=== PATIENT | female | born 1960 | race Caucasian/White ===

== ENCOUNTER 2017-11-27 12:50 | Emergency (ER) | payer OTHER, BC, SELFPAY ==
[2017-11-27 12:52] VITALS: BP 127/79; PULSE 70; RESP 18; TEMP 36.9; O2SAT 98
--- NOTE | 2017-11-27 12:56 | DI.RAD.S_ITS ---
PROCEDURE: XR ANKLE RT MIN 3V INDICATIONS: swelling TECHNIQUE: 3 views of the ankle were acquired. COMPARISON: None. FINDINGS: Bones: No fractures or dislocations. Ankle mortise is normally aligned. No suspicious bony lesions. Soft tissues: No tibiotalar joint effusion. Achilles tendon appears normal. IMPRESSION: No acute fracture. No osseous lesion. If clinical suspicion and/or symptoms persist, further assessment with repeat plainfilms, or advanced imaging (e.g., CT, MRI, or bone scan) may be helpful for further assessment. Dictated by: Fabiana Walls M.D. on 11/27/2017 at 13:18 Approved by: Fabiana Walls M.D. on 11/27/2017 at 13:18
--- NOTE | 2017-11-27 14:03 | ED.LOWEXIN ---
HPI - Extremity Injury (Lower) <MIRACLE De Los Santos - Last Filed: 11/27/17 22:03> General Chief Complaint: Extremity Injury, Lower Stated Complaint: 'BROKE MY ANKLE' Time Seen by Provider: 11/27/17 14:01 History of Present Illness HPI Narrative: 57-year-old female here for complaint of pain into her right ankle and right lower extremity. She states that she got up last night to go to the restroom and twisted her ankle while she was walking to the restroom. She denies any direct trauma to the ankle or lower extremity. She reported increased pain this morning. With some slight swelling. She denies any other injuries or complaints at this time. She reports increased pain with ambulation and weight-bearing. No other concerns or complaints. Related Data Home Medications Medication Instructions Recorded Confirmed aspirin 325 mg PO QDAY #0 08/04/12 10/18/17 Previous Rx's Medication Instructions Recorded atorvastatin 40 mg PO HS #90 tab 11/23/16 gabapentin 800 mg PO TID #270 tab 08/26/17 omeprazole 20 mg PO QDAY #90 cap 08/26/17 lisinopril 10 mg PO Q DAY #90 tab 09/26/17 hydrocodone 5 mg-acetaminophen 325 1 tab PO BID PRN #60 tab 10/18/17 mg tablet duloxetine 30 mg capsule,delayed 60 mg PO QDAY #60 cap 11/28/17 release Allergies Allergy/AdvReac Type Severity Reaction Status Date / Time simvastatin Allergy Severe Anaphylaxis, Verified 10/18/17 15:30 upper back pain prednisone [PREDNISONE] AdvReac Unknown NAUSEA AND Verified 10/18/17 15:30 VOMITING Review of Systems <MIRACLE De Los Santos - Last Filed: 11/27/17 22:03> Constitutional Denies chills, Denies fever(s), Denies lethargy and Denies weakness Eyes Denies change in vision, Denies eye discharge, Denies irritation and Denies loss of vision ENT Ears, Nose, Mouth, and Throat: Denies change in voice, Denies neck pain and Denies sore throat Cardiovascular Denies chest pain, Denies irregular heart rhythm, Denies lightheadedness, Denies palpitations, Denies dyspnea, Denies dyspnea on exertion and Denies orthopnea Respiratory Denies cough, Denies dyspnea, Denies dyspnea on exertion and Denies wheezing Gastrointestinal Gastrointestinal: Denies abdominal pain, Denies change in bowel habits, Denies diarrhea, Denies nausea and Denies vomiting Genitourinary Denies hematuria, Denies flank pain, Denies urinary incontinence and Denies urinary urgency Musculoskeletal Denies neck pain Comments: Left ankle and lower extremity pain Integumentary/Breasts Denies pruritus, Denies erythema, Denies rash and Denies wounds Neurologic Denies confusion, Denies loss of vision and Denies weakness Psychiatric Denies anxiety, Denies confusion, Denies depression, Denies homicidal ideation and Denies suicidal ideation Endocrine Denies palpitations Allergic/Immunologic Denies wheezing Exam <TALON De Los SantosP - Last Filed: 11/27/17 22:03> Initial Vital Signs Initial Vital Signs: Vital Signs Temperature 98.4 F 11/27/17 12:52 Pulse Rate 70 11/27/17 12:52 Respiratory Rate 18 11/27/17 12:52 Blood Pressure 127/79 H 11/27/17 12:52 Pulse Oximetry 98 11/27/17 12:52 Const General: cooperative and well developed Nutritional Appearance: well nourished Orientation: alert, awake, oriented x3 and not confused HENOR Mouth: oral mucosae normal and moist mucous membranes Eyes Conjunctivae: conjunctivae normal Sclera: sclerae normal Pupils: PERRL EOM: EOM intact bilaterally Resp Effort & Inspection: normal respiratory effort, able to speak in complete sentences, no respiratory distress and no use of accessory muscles Auscultation: clear to auscultation bilaterally, no rales, no rhonchi and no wheezes Cardio Rate: regular rate Rhythm: regular rhythm Heart Sounds: no click, no gallops, no murmurs and no rubs Pulses: normal peripheral pulses Skin General: no rashes or lesions noted, No jaundice and No petechiae Extrem Other: Right ankle with slight swelling. No ecchymosis. No deformities. Distal sensation is intact. Distal range of motion is intact. Distal pulses are intact. <Pamela Mayer DO - Last Filed: 11/30/17 19:56> Initial Vital Signs Initial Vital Signs: Vital Signs Temperature 98.4 F 11/27/17 12:52 Pulse Rate 70 11/27/17 12:52 Respiratory Rate 18 11/27/17 12:52 Blood Pressure 127/79 H 11/27/17 12:52 Pulse Oximetry 98 11/27/17 12:52 Course <MIRACLE De Los Santos - Last Filed: 11/27/17 22:03> Orders Ordered: Discontinued Medications Ibuprofen (Advil) 400 mg PO NOW ONE Stop: 11/27/17 14:29 Last Admin: 11/27/17 14:34 Dose: 400 mg Vital Signs - 8 hr 11/27/17 14:08 Pulse Rate [Bilateral Dorsalis Pedis] 86 <Pamela Mayer DO - Last Filed: 11/30/17 19:56> Orders Ordered: Discontinued Medications Ibuprofen (Advil) 400 mg PO NOW ONE Stop: 11/27/17 14:29 Last Admin: 11/27/17 14:34 Dose: 400 mg Vital Signs - 8 hr 11/27/17 14:08 Pulse Rate [Bilateral Dorsalis Pedis] 86 MDM - Extremity Injury (Lower) <MIRACLE De Los Santos - Last Filed: 11/27/17 22:03> Imaging Data Ankle : Radiologist's impression: PROCEDURE: XR ANKLE RT MIN 3V INDICATIONS: swelling TECHNIQUE: 3 views of the ankle were acquired. COMPARISON: None. FINDINGS: Bones: No fractures or dislocations. Ankle mortise is normally aligned. No suspicious bony lesions. Soft tissues: No tibiotalar joint effusion. Achilles tendon appears normal. IMPRESSION: No acute fracture. No osseous lesion. If clinical suspicion and/or symptoms persist, further assessment with repeat plainfilms, or advanced imaging (e.g., CT, MRI, or bone scan) may be helpful for further assessment. Dictated by: Fabiana Walls M.D. on 11/27/2017 at 13:18 Approved by: Fabiana Walls M.D. on 11/27/2017 at 13:18 [facility] Narrative Medical decision making narrative: X-ray of the right ankle was obtained was negative for any acute findings. Due to pain radiating into the right lower extremity tib-fib area offered to get x-ray of that area patient refused. She is placed in a premade gel stirrup splint for comfort and support she has also provided crutches for nonweightbearing. [id number] Tylenol or Motrin as needed for any discomfort. Ice and elevation help with swelling. Follow up with primary care provider later this week for re-evaluation. For any worsening symptoms return to the emergency room. Discharge Plan Departure Patient Disposition: Home, Self-Care Clinical Impression: Right ankle sprain Discharge Date/Time: 11/27/17 14:55 Interventions: ED Discharge Assessment Last Done: 11/27/17 14:55 Instructions: DI for Ankle Sprain Activity Restrictions/Additional Instructions: X-ray the right ankle was obtained and was negative for any acute fractures. Signs and symptoms presents as a sprain into the right ankle. You have been placed in a splint for comfort and support use as directed. Use crutches for nonweightbearing as directed. Use [id number] Tylenol Motrin as needed for any discomfort. Ice and elevation to help with swelling. Follow up with her primary care provider later this week for re-evaluation. For any worsening symptoms return to the emergency room. Prescriptions: No Action aspirin 325 MG tablet 325 mg PO QDAY Qty: 0 RF: 0 atorvastatin 40 MG tablet 40 mg PO HS Qty: 90 RF: 0 gabapentin 800 MG tablet 800 mg PO TID Qty: 270 RF: 1 omeprazole 20 MG capsule,delayed release(DR/EC) 20 mg PO QDAY Qty: 90 RF: 2 lisinopril 10 MG tablet 10 mg PO Q DAY Qty: 90 RF: 3 duloxetine 30 mg capsule,delayed release(DR/EC) 60 mg PO QDAY Qty: 60 RF: 5 hydrocodone-acetaminophen [[place]] 5-325 mg tablet 1 tab PO BID PRN (Reason: pain) Qty: 60 RF: 0 Referrals: Elliot Brink MD [Primary Care Provider] - <Pamela Mayer DO - Last Filed: 11/30/17 19:56> Cosign ED Attending Michael Attestation: I was immediately available in the department for consultation. Documentation has been reviewed. I agree with assessment and plan.
[2017-11-27 14:08] VITALS: PULSE 86
[2017-11-27] MEDS: IBUPROFEN 400 MG TABLET PO (14:34)
--- NOTE | 2017-11-27 14:53 | PC.NURSE ---
pt refused splint/crutches a this time. Pt states she needs to go see her father on fathers day and can not wait here any longer. Provider aware at this time. Pt refused depart vitals as well.
== END 2017-11-27 14:55 | disposition home or self-care (01) ==
PROVIDERS: Emergency Provider Nurse Practitioner Family; PCP Internal Medicine
DX: S93.401A Sprain of unspecified ligament of right ankle, initial encounter (principal); W18.40XA Slipping, tripping and stumbling without falling, unspecified, initial encounter
CPT/HCPCS: 73610; 99282; 99283

== ENCOUNTER → 2017-12-06 13:13 | Outpatient (CLI) | payer OTHER, BC, SELFPAY ==
--- NOTE | 2017-12-06 13:15 | DI.RAD.S_ITS ---
PROCEDURE: XR ANKLE RT MIN 3V INDICATIONS: 57 year-old female with right ankle sprain worsening since 11/26/17. TECHNIQUE: 3 views of the ankle were acquired. COMPARISON: [facility], , XR ANKLE RT MIN 3V, 11/27/2017, 12:46. FINDINGS: Bones: No fractures or dislocations. Ankle mortise is normally aligned. No suspicious bony lesions. Soft tissues: There is persistent mild lateral malleolar soft tissue swelling. No tibiotalar joint effusion. Achilles tendon appears normal. IMPRESSION: No acute bony injuries of the right ankle. Dictated by: Keyur House M.D. on 12/06/2017 at 13:36 Approved by: Keyur House M.D. on 12/06/2017 at 13:37
--- NOTE | 2017-12-06 13:15 | DI.RAD.S_ITS ---
PROCEDURE: XR FOOT RT MIN 3V INDICATIONS: 57 year-old female with right ankle sprain worsening since 11/26/17. TECHNIQUE: 3 views of the foot were acquired. COMPARISON: None. FINDINGS: Bones: On the lateral projection only, a minimally displaced vertical posterior malleolar fracture is present. No suspicious bony lesions. Soft tissues: No tibiotalar joint effusion. Achilles tendon appears normal. IMPRESSION: Minimally displaced posterior malleolar fracture, not apparent on any of the comparison right ankle radiographs on retrospective review. Dictated by: Keyur House M.D. on 12/06/2017 at 13:38 Approved by: Keyur House M.D. on 12/06/2017 at 13:40
== END ==
PROVIDERS: PCP Internal Medicine; Visit Provider Internal Medicine
DX: S93.401A Sprain of unspecified ligament of right ankle, initial encounter (principal); S82.891A Other fracture of right lower leg, initial encounter for closed fracture
CPT/HCPCS: 73610; 73630

== ENCOUNTER → 2017-12-09 08:40 | Outpatient (CLI) | payer OTHER, BC, SELFPAY ==
--- NOTE | 2017-12-09 | DI.CT.S_ITS ---
PROCEDURE: CT LE RT WO CON INDICATIONS: ACUTE RIGHT ANKLE PAIN TECHNIQUE: Noncontrast 1-1.5 mm axial sections acquired from above the tibiotalar joint to the bottom of the calcaneus, with coronal and sagittal reformats. COMPARISON: [facility], CR, XR FOOT RT MIN 3V, 12/06/2017, 13:22. [facility], CR, XR ANKLE RT MIN 3V, 12/06/2017, 13:17. [facility], CR, XR ANKLE RT MIN 3V, 11/27/2017, 12:46. FINDINGS: Image quality: Excellent. Bones: A nondisplaced posterior malleolar fracture is seen, as visualized on the prior radiographs. There is extension to the distal articular surface of the tibia however minimal if any articular surface incongruity. There is a small nondisplaced fracture at the tip of the medial malleolus image 100 series 5. On image 112 series 5 there is a 3 mm linear density adjacent to the medial aspect of the talus however no definite donor site is seen and this could be chronic calcification. There is spurring at the lateral malleolus. There also linear densities in the region of the Lisfranc ligament raising possibility of chronic Lisfranc ligament injury and associated dystrophic calcifications. Recommend clinical correlation. No definite donor site is identified. A presume subcentimeter bone island seen in the calcaneus on image 99 series 5. Soft tissues: Small tibiotalar joint effusion. Circumferential hindfoot subcutaneous swelling and edema. IMPRESSION: Nondisplaced posterior and medial malleolar fractures as above. Small linear densities seen in the region of the Lisfranc ligament raising the possibility of chronic ligamentous injury. Recommend clinical correlation to exclude cortical avulsion fracture fragments (no definitive donor sites identified) Small tibiotalar joint effusion. Dictated by: Toño Mccoy M.D. on 12/09/2017 at 9:17 Approved by: Toño Mccoy M.D. on 12/09/2017 at 9:36
== END ==
PROVIDERS: PCP Internal Medicine; Visit Provider Physician Assistant
DX: S82.54XA Nondisplaced fracture of medial malleolus of right tibia, initial encounter for closed fracture (principal)
CPT/HCPCS: 73700

== ENCOUNTER → 2018-10-04 14:00 | Outpatient (CLI) | payer OTHER, BC, SELFPAY ==
[2018-10-04 14:41] LABS: Erythrocyte Sedimentation Rate 45 MM/HR (0-20)
[2018-10-06 13:33] LABS: ANA Pattern Speckled; ANA Screen, IFA Positive (Negative); ANA Titer 1:40 titer (<1:40)
== END ==
PROVIDERS: PCP Student in an Organized Health Care Education/Training Program; Visit Provider Hospitalist
DX: R51 Headache (principal)
CPT/HCPCS: 36415; 85651; 86038

== ENCOUNTER → 2018-11-09 10:25 | Outpatient (CLI) | payer OTHER, BC, SELFPAY ==
[2018-11-09 11:25] LABS: Alanine Aminotransferase 20 IU/L (9-52); Albumin 4.6 g/dL (3.5-5.0); Albumin Globulin Ratio 1.4 (1.0-2.8); Alkaline Phosphatase 101 U/L (38-126); Bilirubin Total 1.1 mg/dL (0.2-1.3); Blood Urea Nitrogen 14 mg/dL (7-17); Calcium 9.4 mg/dL (8.4-10.2); Carbon Dioxide 26 mmol/L (22-32); Chloride 103 mmol/L (98-107); Cholesterol 242 mg/dL (140-199); Estimated Glomerular Filt Rate > 60.0 mL/min (>60); Globulin 3.3 g/dL (1.7-4.1); Glucose 108 mg/dL (70-100); HDL Cholesterol 102 mg/dL (40-60); LDL Cholesterol Calculated 114 mg/dL (<100); Sodium 138 mmol/L (137-145); Total Protein 7.9 g/dL (6.3-8.2); Triglycerides 132 mg/dL (35-150)
[2018-11-09 11:28] LABS: HEMOLYSIS 122 (0-50); Potassium 4.9 mmol/L (3.4-5.1)
[2018-11-09 11:29] LABS: Aspartate Aminotransferase 43 IU/L (14-36)
== END ==
PROVIDERS: PCP Student in an Organized Health Care Education/Training Program; Visit Provider Student in an Organized Health Care Education/Training Program
DX: E78.2 Mixed hyperlipidemia (principal); Z79.899 Other long term (current) drug therapy; E04.1 Nontoxic single thyroid nodule; G45.9 Transient cerebral ischemic attack, unspecified; I10 Essential (primary) hypertension
CPT/HCPCS: 36415; 80053; 80061

== ENCOUNTER 2019-06-07 18:26 | Emergency (ER) | payer OTHER, BC, SELFPAY ==
[2019-06-07 18:48] VITALS: BP 144/93; PULSE 65; RESP 16; TEMP 36.4; O2SAT 100; BMI 30.2
[2019-06-07 19:14] LABS: Bacteria Urine None Seen; RBC Urine None Seen (0-5/HPF)
[2019-06-07 19:16] LABS: Appearance Urine UA CLEAR; Bilirubin Urine UA NEGATIVE (NEGATIVE); Color Urine UA YELLOW; Glucose Urine UA NEGATIVE (Negative); Ketones Urine UA NEGATIVE (NEGATIVE); Leukocyte Esterase Urine UA NEGATIVE (NEGATIVE); Nitrite Urine UA NEGATIVE (Negative); Occult Blood Urine UA NEGATIVE (Negative); Protein Urine UA NEGATIVE (Negative); Specific Gravity Urine UA <=1.005 (1.000-1.035); Urobilinogen Urine UA 0.2 E.U./dL (0.2)
--- NOTE | 2019-06-07 19:18 | ED.BACK ---
HPI - Back Pain/Injury General Chief Complaint: Back Pain/Injury Stated Complaint: lower back pain with lwr abdominal pain x7 days Time Seen by Provider: 06/07/19 19:16 Source: patient and family Mode of arrival: Ambulatory Limitations: no limitations History of Present Illness HPI Narrative: Former smoker presents with her in the chief complaint of gradually worsening generalized GI symptoms over the past month. She states that she has had alterations in her bowel habit ranging from constipation to diarrhea as well as a fullness and pressure like pain in her lower abdomen that seems to radiate to her back. She denies any numbness, tingling or weakness. She denies dysuria, frequency or urgency. She denies any vaginal bleeding or discharge. She denies the sensation of a foreign body or tissue which is bulging in her vaginal vault such as prolapse. She denies any history of the same outside of this prolonged episode. She denies any family history of colon or rectal cancer. She denies bad food, recent antibiotics MD Complaint: back pain Onset (ago): month(s) Duration: intermittent and progressively worsening Similar Symptoms Previously: No Location: lumbar spine Severity: mild Radiation: none Related Data Home Medications Medication Instructions Recorded Confirmed aspirin 325 mg PO QDAY #0 08/04/12 11/09/18 cholecalciferol (vitamin D3) 50 2,000 unit PO DAILY 08/18/18 11/09/18 mcg (2,000 unit) capsule Previous Rx's Medication Instructions Recorded omeprazole 20 mg capsule,delayed 20 mg PO BID #180 cap 11/09/18 release verapamil 120 mg 24 hr 120 mg PO DAILY #30 cap 12/11/18 capsule,extended release gabapentin 800 mg tablet 800 mg PO TID #270 tab 01/22/19 atorvastatin 40 mg tablet 40 mg PO HS #90 tab 03/26/19 duloxetine 30 mg capsule,delayed 60 mg PO QDAY #180 cap 03/26/19 release losartan 50 mg tablet 50 mg PO DAILY #90 tab 05/22/19 Allergies Allergy/AdvReac Type Severity Reaction Status Date / Time lisinopril Allergy Severe SWOLLEN Verified 12/12/18 10:05 TOUNGUE simvastatin Allergy Severe Anaphylaxis, Verified 12/12/18 10:05 upper back pain prednisone [PREDNISONE] AdvReac Unknown NAUSEA AND Verified 12/12/18 10:05 VOMITING Review of Systems Constitutional Constitutional: Denies chills, Denies fatigue, Denies fever(s), Denies frequent falls, Denies lethargy and Denies weakness Eyes Eyes: Denies change in vision, Denies eye discharge, Denies irritation and Denies loss of vision ENT Ears, Nose, Mouth, and Throat: Denies change in voice, Denies dizziness, Denies neck pain, Denies sore throat and Denies throat swelling Cardiovascular Cardiovascular: Denies chest pain, Denies irregular heart rhythm, Denies lightheadedness, Denies palpitations, Denies dyspnea, Denies dyspnea on exertion and Denies orthopnea Respiratory Respiratory: Denies cough, Denies dyspnea, Denies dyspnea on exertion and Denies wheezing Gastrointestinal Gastrointestinal: Reports abdominal pain, Reports change in bowel habits, Reports constipation, Reports diarrhea, Denies nausea and Denies vomiting Genitourinary Genitourinary: Denies hematuria, Denies flank pain, Denies urinary incontinence and Denies urinary urgency Musculoskeletal Musculoskeletal: Denies back pain, Denies muscle weakness, Denies neck pain, Denies numbness and Denies tingling Integumentary/Breasts Skin/Breast: Denies pruritus, Denies erythema, Denies rash and Denies wounds Neurologic Neurologic: Denies behavioral changes, Denies confusion, Denies dizziness, Denies frequent falls, Denies loss of vision, Denies numbness, Denies tingling and Denies weakness Psychiatric Psychiatric: Denies anxiety, Denies behavioral changes, Denies confusion, Denies depression, Denies homicidal ideation and Denies suicidal ideation Endocrine Endocrine: Denies fatigue, Denies flushing and Denies palpitations Hematologic/Lymphatic Hematologic/Lymphatic: Denies easy bruising Allergic/Immunologic Allergic/Immunologic: Denies urticaria, Denies throat swelling and Denies wheezing Patient History Medical History Cervical spine disease (Chronic) Hypertension (Chronic ~2013) TIA (transient ischemic attack) (Resolved ~09/2011) Surgical History History of cervical spinal surgery (Resolved ~06/2014) History of esophagogastroduodenoscopy (EGD) (06/04/14) Family History Father Hyperlipidemia Hypertension Grandfather Coronary artery disease Chronic heart failure Grandmother Hyperlipidemia Mother Hyperlipidemia Hypertension Grandfather Hyperlipidemia Social History Smoking Status: Former smoker alcohol intake: current substance use type: does not use Smoking Status: Former smoker alcohol intake frequency: 0-2 drinks per day Substance Use Type: does not use Exam Narrative Exam Narrative: GENERAL: [58] year old patient appears stated age. Well-nourished, well-developed patient, in mild distress. HEAD: Atraumatic. Normocephalic. EYES: Pupils equal round and reactive. Extraocular motions intact. No scleral icterus. No injection or drainage. ENT: Nose without bleeding, purulent drainage. Throat without erythema, tonsillar hypertrophy or exudate. Airway patent. NECK: Trachea midline. Non tender CARDIOVASCULAR: Regular rate and rhythm without murmurs, gallops, or rubs. RESPIRATORY: Clear to auscultation. Breath sounds equal bilaterally. No wheezes, rales, or rhonchi. GASTROINTESTINAL: Abdomen soft, mild suprapubic tenderness, nondistended. BS in all 4 quadrants EXTREMITIES: No edema or joint tenderness. BACK: Nontender without deformity or crepitance. No flank tenderness. NEURO: AOx3. SKIN: No rash or erythema of visible areas Initial Vital Signs Initial Vital Signs: Vital Signs Temperature 97.6 F 06/07/19 18:48 Pulse Rate 65 06/07/19 18:48 Respiratory Rate 16 06/07/19 18:48 Blood Pressure 144/93 H 06/07/19 18:48 Pulse Oximetry 100 06/07/19 18:48 Course Orders Ordered: ED Orders 06/07/19 19:08 EKG-12 Lead Stat 06/07/19 19:10 UA Complete [Urinalysis and Microscopic] Stat 06/07/19 19:17 Complete Blood Count AUTO DIFF Stat Comprehensive Metabolic Panel Stat Lipase Stat Partial Thromboplastin Time Stat Prothrombin Time INR Stat 06/07/19 19:36 CT abdomen pelvis w con Stat Discontinued Medications Hydrocodone Bitart/Acetaminophen (Vicodin 5/325 Prepack) 1 bottle MISC SEEINSTR ONE Stop: 06/07/19 21:12 Last Admin: 06/07/19 21:15 Dose: 1 bottle Documented by: ISABELLA Hydromorphone HCl (Dilaudid) 0.5 mg IV NOW ONE Stop: 06/07/19 19:39 Last Admin: 06/07/19 19:43 Dose: 0.5 mg Documented by: ISABELLA Sodium Chloride (Normal Saline 0.9%) 1,000 mls @ 1,000 mls/hr IV BOLUS ONE Stop: 06/07/19 20:35 Last Infusion: 06/07/19 21:05 Dose: 0 mls/hr Documented by: Admin: 06/07/19 19:43 Dose: 1,000 mls/hr Documented by: ISAEBLLA Ondansetron HCl (Zofran) 4 mg IV Q4HR PRN PRN Reason: Nausea And Vomiting Last Admin: 06/07/19 19:43 Dose: 4 mg Documented by: ISABELLA Ondansetron HCl (Zofran Odt Prepack) 1 bottle MISC SEEINSTR ONE Stop: 06/07/19 21:12 Last Admin: 06/07/19 21:15 Dose: 1 bottle Documented by: ISABELLA Vital Signs Vital signs: Vital Signs - 8 hr 06/07/19 19:29 06/07/19 20:57 06/07/19 21:22 Pulse Rate 67 52 L 63 Blood Pressure 130/70 Blood Pressure [Left Arm] 136/103 H 121/73 Pulse Oximetry 97 98 98 MDM - Back Pain/Injury Lab Data Result diagrams: 06/07/19 19:17 06/07/19 19:17 Labs: Lab Results 06/07/19 06/07/19 06/07/19 Range/Units 19:10 19:17 19:17 WBC 6.7 (4.5-11.0) X10^3/uL RBC 4.35 (4.0-5.2) X10^6/uL Hgb 13.9 (12.0-16.0) g/dL Hct 40.9 (36-46) % MCV 93.9 (80-100) fL MCH 31.8 (26-34) PG MCHC 33.9 (30-36) % RDW 13.3 (11.6-14.8) % Plt Count 342 (150-400) X10^3/uL Neut % (Auto) 62.5 (50-75) % Lymph % (Auto) 23.7 L (25-40) % [place] % (Auto) 10.4 (3-14) % Eos % (Auto) 2.5 (2-4) % Baso % (Auto) 0.9 (0-2) % Neut # (Auto) 4100 (0594-5058) /uL Lymph # (Auto) 1600 (6413-4864) /uL [place] # (Auto) 700 (0-900) /uL Eos # (Auto) 200 (0-450) /uL Baso # (Auto) 100 (0-100) /uL PT 10.9 (10.1-12.7) SECONDS INR 1.0 (0.9-1.3) APTT 33 (26.4-36.2) SECONDS Sodium (137-145) mmol/L Potassium (3.4-5.1) mmol/L Chloride (98-107) mmol/L Carbon Dioxide (22-32) mmol/L BUN (7-17) mg/dL Creatinine (0.52-1.04) mg/dL Estimated GFR (>60) mL/min BUN/Creatinine Ratio (6-22) Glucose (70-100) mg/dL Calcium (8.4-10.2) mg/dL Total Bilirubin (0.2-1.3) mg/dL AST (14-36) IU/L ALT (<35) IU/L Alkaline Phosphatase (38-126) U/L Total Protein (6.3-8.2) g/dL Albumin (3.5-5.0) g/dL Globulin (1.7-4.1) g/dL Albumin/Globulin Ratio (1.0-2.8) Lipase (23-300) U/L Urine Color Yellow Urine Appearance Clear Urine pH 6.5 (4.5-8.0) Ur Specific [place] <=1.005 (1.000-1.035) Urine Protein Negative (Negative) Urine Glucose (UA) Negative (Negative) g/dL Urine Ketones Negative (NEGATIVE) Urine Occult Blood Negative (Negative) Urine Nitrate Negative (Negative) Urine Bilirubin Negative (NEGATIVE) Urine Urobilinogen 0.2 (0.2) E.U./dL Ur Leukocyte Esterase Negative (NEGATIVE) Urine RBC None seen (0-5/HPF) Urine WBC 0-1/hpf (0-5/HPF) Ur Squamous Epith Cells 0-1 /hpf (0-5/HPF) Urine Bacteria None seen (None) Ur Culture Indicated? Cult not indicated 06/07/19 Range/Units 19:17 WBC (4.5-11.0) X10^3/uL RBC (4.0-5.2) X10^6/uL Hgb (12.0-16.0) g/dL Hct (36-46) % MCV (80-100) fL MCH (26-34) PG MCHC (30-36) % RDW (11.6-14.8) % Plt Count (150-400) X10^3/uL Neut % (Auto) (50-75) % Lymph % (Auto) (25-40) % [place] % (Auto) (3-14) % Eos % (Auto) (2-4) % Baso % (Auto) (0-2) % Neut # (Auto) (5465-1453) /uL Lymph # (Auto) (2534-3243) /uL [place] # (Auto) (0-900) /uL Eos # (Auto) (0-450) /uL Baso # (Auto) (0-100) /uL PT (10.1-12.7) SECONDS INR (0.9-1.3) APTT (26.4-36.2) SECONDS Sodium 140 (137-145) mmol/L Potassium 3.3 L (3.4-5.1) mmol/L Chloride 94 L (98-107) mmol/L Carbon Dioxide 28 (22-32) mmol/L BUN 8 (7-17) mg/dL Creatinine 0.70 (0.52-1.04) mg/dL Estimated GFR > 60.0 (>60) mL/min BUN/Creatinine Ratio 11.4 (6-22) Glucose 72 (70-100) mg/dL Calcium 9.5 (8.4-10.2) mg/dL Total Bilirubin 0.4 (0.2-1.3) mg/dL AST 32 (14-36) IU/L ALT 24 (<35) IU/L Alkaline Phosphatase 81 (38-126) U/L Total Protein 8.3 H (6.3-8.2) g/dL Albumin 4.9 (3.5-5.0) g/dL Globulin 3.4 (1.7-4.1) g/dL Albumin/Globulin Ratio 1.4 (1.0-2.8) Lipase 105 (23-300) U/L Urine Color Urine Appearance Urine pH (4.5-8.0) Ur Specific [place] (1.000-1.035) Urine Protein (Negative) Urine Glucose (UA) (Negative) g/dL Urine Ketones (NEGATIVE) Urine Occult Blood (Negative) Urine Nitrate (Negative) Urine Bilirubin (NEGATIVE) Urine Urobilinogen (0.2) E.U./dL Ur Leukocyte Esterase (NEGATIVE) Urine RBC (0-5/HPF) Urine WBC (0-5/HPF) Ur Squamous Epith Cells (0-5/HPF) Urine Bacteria (None) Ur Culture Indicated? Imaging Data CT scan - abdomen/pelvis: Radiologist's Impression: 10 Ruddy Benites DO Find Patient Imaging - AmishprabhuRamo Brown 58 F 1960 ACTIVITY DATE EXAM STATUS AUTHOR 06/07/19 19:36 [place] [address] CT Scan Report Signed Patient: Ramo Oh LMR#: [id number] : 2Acct:[id number] Age/Sex: 58 / FDate of Service: 06/07/19 Loc: ED Accession Number: [id number] Procedure: CT abdomen pelvis w con Ordering Provider: Ruddy Benites D.O. PROCEDURE: CT ABDOMEN PELVIS W CON INDICATIONS: severe abdominal / pelvic pain radiates to back TECHNIQUE: After the administration of intravenous contrast, 5 mm thick sections acquired from the diaphragm to the symphysis. 5 mm coronal and sagittal reformats were acquired. For radiation dose reduction, the following was used: automated exposure control, adjustment of mA and/or kV according to patient size. COMPARISON: [facility], CT, ABDOMEN/PELVIS WITH CONTRAST, 09/12/2008, 11:11. FINDINGS: Image quality: Excellent. ABDOMEN: Lung bases: Lung bases are clear. Heart size is normal. Solid organs: Liver is normal in size and enhancement. Gallbladder is unremarkable. Previously seen gallstone is no longer visualized. Biliary system is non dilated. Pancreas enhances normally. Spleen is normal in size and enhancement. No right adrenal nodule. Stable 9 mm left adrenal nodule. Kidneys demonstrate normal size and enhancement, without hydronephrosis. Peritoneum and bowel: A few scattered colonic diverticula without acute inflammatory changes. Normal appendix. Bowel loops demonstrate normal wall thickness and caliber. No free fluid or air. Several segments of fluid-filled small bowel are noted in the mid and lower abdomen bilaterally without dilatation or adjacent inflammatory stranding. Nodes and vessels: No retroperitoneal or mesenteric adenopathy by size criteria. Aorta and inferior vena cava are normal in size. Scattered atherosclerotic calcifications of the abdominal aorta and iliac vessels without aneurysmal dilatation. Miscellaneous: No ventral hernias. PELVIS: Genitourinary: Bladder wall thickness is normal. Miscellaneous: No inguinal hernias or adenopathy. Bones: No suspicious bony lesions. No vertebral body compression fractures. IMPRESSION: 1. Several loops of fluid-filled small bowel in the mid and lower abdomen bilaterally without associate wall thickening or obstruction. Findings are nonspecific and may represent enteritis. Otherwise, no acute abnormalities identified in the abdomen or pelvis. 2. Scant colonic diverticulosis without acute diverticulitis. 3. Previously noted gallstone is no longer visualized. 4. Normal appendix. 5. Stable 9 mm left adrenal nodule. Its stability over time is compatible with a benign process. Dictated by: Harman Farah M.D. on 06/07/2019 at 20:42 Approved by: Harman Farah M.D. on 06/07/2019 at 20:50 MDM Narrative Medical decision making narrative: Multiple etiologies for patient's symptoms considered including: [bowel obstruction vs. mass vs. diverticulitis vs. enteritis vs. IBS vs. other] Patient's symptoms improved or duration of stay with above-stated therapies. Findings and discharge diagnosis discussed with patient/family followed by verbalization of understanding Return precautions discussed with patient/family whom verbalize understanding. Discharge Plan Departure Patient Disposition: Home Clinical Impression: Enteritis Abdominal pain Qualifiers: Abdominal location: generalized Qualified Code(s): R10.84 - Generalized abdominal pain Discharge Date/Time: 06/07/19 21:24 Instructions: DI for Abdominal Pain-Adult, DI for Enteritis Activity Restrictions/Additional Instructions: 1. Drink plenty of fluids with frequent small sips. 2. For the next 24 hours a clear liquid diet is advised. After that please employ a brat diet which would include bananas, rice, apples, toast. 3. Please take medications as directed. 4. Please follow-up with your doctor in the next 1-2 days. Call the office for an appointment. 5. Please return to the emergency Department for any worsening or persistent symptoms, such as increasing pain or fever. Prescriptions: No Action aspirin 325 MG tablet 325 mg PO QDAY Qty: 0 RF: 0 verapamil 120 mg capsule,ext rel. pellets 24 hr 120 mg PO DAILY Qty: 30 RF: 2 gabapentin 800 mg tablet 800 mg PO TID Qty: 270 RF: 3 atorvastatin 40 mg tablet 40 mg PO HS Qty: 90 RF: 3 duloxetine 30 mg capsule,delayed release(DR/EC) 60 mg PO QDAY Qty: 180 RF: 1 losartan 50 mg tablet 50 mg PO DAILY Qty: 90 RF: 1 omeprazole 20 mg capsule,delayed release(DR/EC) 20 mg PO BID Qty: 180 RF: 1 cholecalciferol (vitamin D3) 2,000 unit capsule 2,000 unit PO DAILY RF: 0 Referrals: Luis Armando Weathers MD [Primary Care Provider] - Daryn Salinas MD [Physician] -
[2019-06-07 19:22] LABS: pH Urine UA 6.5 (4.5-8.0)
[2019-06-07 19:23] LABS: Culture Indicated Urine Cult Not Indicated; Squamous Epithelial Cell Urine 0-1 /HPF (0-5/HPF); WBC Urine 0-1/HPF (0-5/HPF)
[2019-06-07 19:24] LABS: Add Manual Diff / Slide Review NO; Basophils Absolute Auto 100 /uL (0-100); Basophils Percent Auto 0.9 % (0-2); Eosinophils Absolute Auto 200 /uL (0-450); Eosinophils Percent Auto 2.5 % (2-4); Hematocrit 40.9 % (36-46); Hemoglobin 13.9 g/dL (12.0-16.0); Lymphocytes Absolute Auto 1600 /uL (1100-4500); Lymphocytes Percent Auto 23.7 % (25-40); Mean Corpuscular HGB Conc 33.9 % (30-36); Mean Corpuscular Hemoglobin 31.8 PG (26-34); Mean Corpuscular Volume 93.9 fL (80-100); Monocytes Absolute Auto 700 /uL (0-900); Monocytes Percent Auto 10.4 % (3-14); Neutrophils Absolute Auto 4100 /uL (1500-7000); Neutrophils Percent Auto 62.5 % (50-75); Platelet Count 342 X10^3/uL (150-400); Red Blood Cell Count 4.35 X10^6/uL (4.0-5.2); Red Cell Distribution Width 13.3 % (11.6-14.8); White Blood Cell Count 6.7 X10^3/uL (4.5-11.0)
[2019-06-07 19:29] VITALS: BP 136/103; PULSE 67; O2SAT 97
[2019-06-07 19:30] LABS: Prothrombin Time 10.9 SECONDS (10.1-12.7)
[2019-06-07 19:33] LABS: PTT Partial Thromboplastin Tim 33 SECONDS (26.4-36.2)
[2019-06-07 19:36] LABS: Alanine Aminotransferase 24 IU/L (<35); Albumin 4.9 g/dL (3.5-5.0); Albumin Globulin Ratio 1.4 (1.0-2.8); Alkaline Phosphatase 81 U/L (38-126); Aspartate Aminotransferase 32 IU/L (14-36); BUN Creatinine Ratio 11.4 (6-22); Bilirubin Total 0.4 mg/dL (0.2-1.3); Blood Urea Nitrogen 8 mg/dL (7-17); Calcium 9.5 mg/dL (8.4-10.2); Carbon Dioxide 28 mmol/L (22-32); Chloride 94 mmol/L (98-107); Estimated Glomerular Filt Rate > 60.0 mL/min (>60); Globulin 3.4 g/dL (1.7-4.1); Glucose 72 mg/dL (70-100); HEMOLYSIS 17 (0-50); Lipase 105 U/L (23-300); Potassium 3.3 mmol/L (3.4-5.1); Sodium 140 mmol/L (137-145); Total Protein 8.3 g/dL (6.3-8.2)
--- NOTE | 2019-06-07 19:36 | DI.CT.S_ITS ---
PROCEDURE: CT ABDOMEN PELVIS W CON INDICATIONS: severe abdominal / pelvic pain radiates to back TECHNIQUE: After the administration of intravenous contrast, 5 mm thick sections acquired from the diaphragm to the symphysis. 5 mm coronal and sagittal reformats were acquired. For radiation dose reduction, the following was used: automated exposure control, adjustment of mA and/or kV according to patient size. COMPARISON: [facility], CT, ABDOMEN/PELVIS WITH CONTRAST, 09/12/2008, 11:11. FINDINGS: Image quality: Excellent. ABDOMEN: Lung bases: Lung bases are clear. Heart size is normal. Solid organs: Liver is normal in size and enhancement. Gallbladder is unremarkable. Previously seen gallstone is no longer visualized. Biliary system is non dilated. Pancreas enhances normally. Spleen is normal in size and enhancement. No right adrenal nodule. Stable 9 mm left adrenal nodule. Kidneys demonstrate normal size and enhancement, without hydronephrosis. Peritoneum and bowel: A few scattered colonic diverticula without acute inflammatory changes. Normal appendix. Bowel loops demonstrate normal wall thickness and caliber. No free fluid or air. Several segments of fluid-filled small bowel are noted in the mid and lower abdomen bilaterally without dilatation or adjacent inflammatory stranding. Nodes and vessels: No retroperitoneal or mesenteric adenopathy by size criteria. Aorta and inferior vena cava are normal in size. Scattered atherosclerotic calcifications of the abdominal aorta and iliac vessels without aneurysmal dilatation. Miscellaneous: No ventral hernias. PELVIS: Genitourinary: Bladder wall thickness is normal. Miscellaneous: No inguinal hernias or adenopathy. Bones: No suspicious bony lesions. No vertebral body compression fractures. IMPRESSION: 1. Several loops of fluid-filled small bowel in the mid and lower abdomen bilaterally without associate wall thickening or obstruction. Findings are nonspecific and may represent enteritis. Otherwise, no acute abnormalities identified in the abdomen or pelvis. 2. Scant colonic diverticulosis without acute diverticulitis. 3. Previously noted gallstone is no longer visualized. 4. Normal appendix. 5. Stable 9 mm left adrenal nodule. Its stability over time is compatible with a benign process. Dictated by: Harman Farah M.D. on 06/07/2019 at 20:42 Approved by: Harman Farah M.D. on 06/07/2019 at 20:50
[2019-06-07] MEDS: ONDANSETRON 4 MG/2 ML INJ IV (19:43)
[2019-06-07] MEDS: SODIUM CHLORIDE 0.9% 1,000 ML 1000 ML IV (19:43)
[2019-06-07] MEDS: HYDROMORPHONE 0.5 MG INJ IV (19:43)
[2019-06-07 20:57] VITALS: BP 121/73; PULSE 52; O2SAT 98
[2019-06-07] MEDS: ONDANSETRON 4 MG ODT PREPACK 1 BOTTLE MISC (21:15)
[2019-06-07] MEDS: HYDROCODONE/ACET 5/325 PREPACK 1 BOTTLE MISC (21:15)
[2019-06-07 21:22] VITALS: BP 130/70; PULSE 63; O2SAT 98
== END 2019-06-07 21:24 | disposition home or self-care (01) ==
PROVIDERS: Emergency Provider Emergency Medicine; PCP Student in an Organized Health Care Education/Training Program
DX: K52.9 Noninfective gastroenteritis and colitis, unspecified (principal); K59.00 Constipation, unspecified
CPT/HCPCS: 36415; 74177; 80053; 81001; 83690; 85025; 85610; 85730; 93005; 96361; 96374; 96375; 99283; 99285; J1170; J2405

== ENCOUNTER → 2019-06-14 07:43 | Outpatient (CLI) | payer OTHER, BC, SELFPAY ==
--- NOTE | 2019-06-14 07:44 | DI.US.S_ITS ---
PROCEDURE: US ABDOMEN COMPLETE INDICATIONS: ABDOMINAL/PELVIC PAIN TECHNIQUE: Real-time scanning was performed of the abdominal and retroperitoneal organs, with image documentation. COMPARISON: [facility], CT, CT ABDOMEN PELVIS W CON, 06/07/2019, 20:03. [facility], US, ABDOMEN COMPLETE, 12/06/2011, 12:53. FINDINGS: Liver: Liver is normal in size and homogeneous in echotexture. Gallbladder: No findings of gallstones or sludge are seen. The gallbladder wall is not thickened, measuring 3 mm or less. No specific pericholecystic fluid is seen. The sonographic Padilla sign is negative. Biliary ducts: Intrahepatic bile ducts are non-dilated. Extrahepatic bile duct caliber measures 3 mm. Normal is 6-7 mm or less in diameter, or 10 mm or less post-cholecystectomy. Pancreas: Visualized portions of the pancreas are sonographically normal. Spleen: Spleen is normal in size and homogeneous in echotexture. Kidneys: Kidneys are normal in size and echotexture. Right kidney measures 10.8 cm long; left kidney measures 9.5 cm long. No hydronephrosis or nephrolithiasis. No solid masses. Aorta: Visualized aorta is normal in caliber at less than 3 cm. Iliacs: Proximal common iliac arteries are normal in caliber at less than 2.5 cm. IVC: Intrahepatic inferior vena cava is patent. Miscellaneous: No free abdominal fluid. IMPRESSION: Negative ultrasound. The gallbladder demonstrates a normal sonographic appearance. No biliary dilatation is seen. Dictated by: Jose Vo M.D. on 06/14/2019 at 8:16 Approved by: Jose Vo M.D. on 06/14/2019 at 8:17
== END ==
PROVIDERS: PCP Student in an Organized Health Care Education/Training Program; Visit Provider Student in an Organized Health Care Education/Training Program
DX: R10.2 Pelvic and perineal pain (principal); R10.9 Unspecified abdominal pain
CPT/HCPCS: 76700

== ENCOUNTER → 2019-06-19 08:04 | Outpatient (CLI) | payer OTHER, BC, SELFPAY ==
--- NOTE | 2019-06-19 08:05 | DI.US.S_ITS ---
PROCEDURE: US PELVIC COMPLETE INDICATIONS: PAIN TECHNIQUE: Real-time scanning was performed of the pelvic organs, with image documentation. Additional endovaginal scanning was necessary due to incomplete visualization of the adnexal and endometrial structures by transabdominal scanning. COMPARISON: [facility], , US ABDOMEN COMPLETE, 06/14/2019, 7:58. FINDINGS: Transabdominal scanning: Limited scanning through the kidneys shows no hydronephrosis. No pathologic free abdominal or pelvic fluid. Endovaginal scanning: Uterus: Uterus is normal in size at 4 x 3 x 2.9 cm. The endometrium measures 5 mm in combined thickness. Ovaries: Neither of the ovaries can be seen. No adnexal masses are seen. IMPRESSION: No imaging explanation is found for this patient's presenting symptoms. Normal appearing uterus. Ovaries not seen. Dictated by: Jose Vo M.D. on 06/19/2019 at 8:11 Approved by: Jose Vo M.D. on 06/19/2019 at 8:13
== END ==
PROVIDERS: PCP Student in an Organized Health Care Education/Training Program; Visit Provider Student in an Organized Health Care Education/Training Program
DX: R10.2 Pelvic and perineal pain (principal)
CPT/HCPCS: 76830; 76856

== ENCOUNTER → 2019-06-26 09:18 | Outpatient (CLI) | payer OTHER, BC, SELFPAY ==
[2019-06-26 09:22] LABS: RBC Urine None Seen (0-5/HPF)
[2019-06-26 10:42] LABS: Appearance Urine UA CLEAR; Bilirubin Urine UA NEGATIVE (NEGATIVE); Color Urine UA YELLOW; Glucose Urine UA NEGATIVE (Negative); Ketones Urine UA NEGATIVE (NEGATIVE); Leukocyte Esterase Urine UA 1+ (NEGATIVE); Nitrite Urine UA NEGATIVE (Negative); Occult Blood Urine UA NEGATIVE (Negative); Protein Urine UA NEGATIVE (Negative); Urobilinogen Urine UA 0.2 E.U./dL (0.2); pH Urine UA 5.5 (4.5-8.0)
[2019-06-26 11:00] LABS: Bacteria Urine Occasional (0-1); Culture Indicated Urine Specimen Cultured; Squamous Epithelial Cell Urine 1-5 /HPF (0-5/HPF); WBC Urine 1-5/HPF (0-5/HPF)
[2019-06-26 11:41] LABS: HIV 1 & 2 Ab/Ag 4th Gen Combo NEGATIVE (NEGATIVE)
[2019-06-26 12:07] LABS: Urine N gonorrhoeae NOT DETECTED
[2019-06-26 12:12] LABS: Urine Chlamydia NOT DETECTED
[2019-06-28 18:00] LABS: RPR Screen Nonreactive (Nonreactive)
== END ==
PROVIDERS: PCP Student in an Organized Health Care Education/Training Program; Visit Provider Student in an Organized Health Care Education/Training Program
DX: R10.2 Pelvic and perineal pain (principal)
CPT/HCPCS: 36415; 81001; 86592; 87086; 87389; 87491; 87591

== ENCOUNTER → 2019-06-28 17:37 | Outpatient (CLI) | payer OTHER, BC, SELFPAY ==
--- NOTE | 2019-06-28 17:40 | DI.MRI.S_ITS ---
PROCEDURE: MR PELIS WO/W CON INDICATIONS: pelvic pain TECHNIQUE: Coronal HASTE, sagittal T2 FSE, axial T1 FSE, axial and coronal nonbreath-hold T2 FSE. Axial dynamic VIBE during administration of contrast. Post-contrast axial and coronal VIBE/2-D FLASH with fat saturation from the iliac crests to the symphysis. Optional diffusion weighted imaging and ADC may be performed. COMPARISON: None. FINDINGS: Image quality: Excellent. Bowel and peritoneum: No pathologic free pelvic fluid. Inferior colon and small bowel loops are normal in caliber. Genitourinary system: Bladder wall is normal in thickness. Distal ureters are non distended. Nodes and vessels: No pathologic pelvic or inguinal adenopathy by size criteria. Iliac vessels are normal in caliber. Soft tissues: No inguinal hernias. Gynecologic structures appear normal. Bones: Marrow is normal in overall signal. IMPRESSION: A source of pelvic pain is not seen. There is no evidence of external or internal hernia. No inflammatory or neoplastic process is identified. No adenopathy is found. No impingement on the lumbosacral plexus appears present. Dictated by: James Sumner M.D. on 06/29/2019 at 16:23 Approved by: James Sumner M.D. on 06/29/2019 at 16:27
== END ==
PROVIDERS: PCP Student in an Organized Health Care Education/Training Program; Visit Provider Student in an Organized Health Care Education/Training Program
DX: R10.2 Pelvic and perineal pain (principal)
CPT/HCPCS: 72197; A9579

== ENCOUNTER → 2020-10-17 16:06 | Outpatient (CLI) | payer OTHER, SELFPAY ==
[2020-10-17 17:26] LABS: Blood Urea Nitrogen 9 mg/dL (7-17); Calcium 9.4 mg/dL (8.4-10.2); Carbon Dioxide 28 mmol/L (22-32); Chloride 100 mmol/L (98-107); Estimated Glomerular Filt Rate > 60.0 mL/min (>60); Glucose 105 mg/dL (70-100); HEMOLYSIS < 15 (0-50); Magnesium 1.9 mg/dL (1.6-2.3); Potassium 3.6 mmol/L (3.4-5.1); Sodium 137 mmol/L (137-145)
== END ==
PROVIDERS: PCP Student in an Organized Health Care Education/Training Program; Referring Provider Student in an Organized Health Care Education/Training Program; Visit Provider Student in an Organized Health Care Education/Training Program
DX: I10 Essential (primary) hypertension (principal); M62.838 Other muscle spasm; R25.3 Fasciculation
CPT/HCPCS: 36415; 80048; 83735

== ENCOUNTER → 2022-04-16 15:33 | Outpatient (CLI) | payer OTHER, BC, SELFPAY ==
--- NOTE | 2022-04-16 15:35 | DI.MG.S_ITS ---
BILATERAL DIGITAL SCREENING MAMMOGRAM 3D/2D WITH CAD: 04/16/2022 CLINICAL: Routine screening. Comparison is made to exams dated: 01/22/2010 mammogram and 04/12/2005 mammogram - [facility]. Both breasts are heterogeneously dense, which may obscure small masses (category c / 51-75% glandular tissue). Current study was also evaluated with a Computer Aided Detection (CAD) system. No significant masses, calcifications, or other findings are seen in either breast. There has been no significant interval change. IMPRESSION: NEGATIVE There is no mammographic evidence of malignancy. A 1 year screening mammogram is recommended. Based on the Tyrer Cuzick model (a risk assessment model) the patient's lifetime risk is 7.7% and her 10 year risk is 3.1%. According to the ACR, ACS, and NCCN guidelines, an annual breast MRI exam along with mammogram is recommended if the patient's lifetime risk is 20% or greater. This exam was interpreted at Station ID: [id number]. NOTE: For mammograms, a report in lay terms will be sent to the patient. Approximately 15% of breast malignancies will not be visualized mammographically. In the management of a palpable breast mass, a negative mammogram must not discourage biopsy of a clinically suspicious lesion. Electronically Signed By: Holger sloan/paulie:04/16/2022 16:25:22 letter sent: Normal Exam ACR BI-RADS Category 1: Negative [id number]
== END ==
PROVIDERS: PCP Student in an Organized Health Care Education/Training Program; Referring Provider Student in an Organized Health Care Education/Training Program; Visit Provider Student in an Organized Health Care Education/Training Program
DX: Z12.31 Encounter for screening mammogram for malignant neoplasm of breast (principal)
CPT/HCPCS: 77063; 77067

== ENCOUNTER → 2022-04-19 16:29 | Outpatient (CLI) | payer OTHER, BC, SELFPAY ==
[2022-04-19 18:32] LABS: Add Manual Diff / Slide Review NO; Basophils Absolute Auto 0 /uL (0-100); Basophils Percent Auto 0.3 % (0-2); Eosinophils Absolute Auto 200 /uL (0-450); Hematocrit 37.8 % (36-46); Hemoglobin 12.8 g/dL (12.0-16.0); Lymphocytes Absolute Auto 1800 /uL (1100-4500); Lymphocytes Percent Auto 25.7 % (25-40); Mean Corpuscular Hemoglobin 32.4 PG (26-34); Mean Corpuscular Volume 95.3 fL (80-100); Monocytes Absolute Auto 700 /uL (0-900); Monocytes Percent Auto 10.1 % (3-14); Neutrophils Absolute Auto 4200 /uL (1500-7000); Neutrophils Percent Auto 60.9 % (50-75); Platelet Count 320 X10^3/uL (150-400); Red Blood Cell Count 3.97 X10^6/uL (4.0-5.2); Red Cell Distribution Width 13.3 % (11.6-14.8); White Blood Cell Count 6.8 X10^3/uL (4.5-11.0)
[2022-04-19 18:40] LABS: Alanine Aminotransferase 35 IU/L (<35); Albumin 4.6 g/dL (3.5-5.0); Albumin Globulin Ratio 1.3 (1.0-2.8); Alkaline Phosphatase 65 U/L (38-126); Aspartate Aminotransferase 34 IU/L (14-36); BUN Creatinine Ratio 26.2 (6-22); Bilirubin Total 0.4 mg/dL (0.2-1.3); Blood Urea Nitrogen 16 mg/dL (7-17); Calcium 9.9 mg/dL (8.4-10.2); Carbon Dioxide 27 mmol/L (22-32); Chloride 100 mmol/L (98-107); Estimated Glomerular Filt Rate > 60 mL/min (>60); Globulin 3.5 g/dL (1.7-4.1); Glucose 97 mg/dL (80-110); HEMOLYSIS < 15 (0-50); Potassium 3.8 mmol/L (3.4-5.1); Sodium 139 mmol/L (137-145); Total Protein 8.1 g/dL (6.3-8.2)
[2022-04-19 18:43] LABS: Prothrombin Time 11.1 SECONDS (10.1-12.7)
[2022-04-19 18:46] LABS: PTT Partial Thromboplastin Tim 29 SECONDS (26-36)
[2022-04-19 20:11] LABS: Hep C Virus Ab w/Reflex Quant NEGATIVE s/c (NEGATIVE)
[2022-04-26 17:36] LABS: Atypical P-ANCA Titer <1:20 titer (Neg:<1:20); C-ANCA Titer <1:20 titer (Neg:<1:20); P-ANCA Titer <1:20 titer (Neg:<1:20)
[2022-05-17 13:01] LABS: Antimyeloperoxidase AB <0.2
[2022-05-17 13:02] LABS: Antiproteinase 3 AB <0.2
== END ==
PROVIDERS: PCP Student in an Organized Health Care Education/Training Program; Referring Provider Student in an Organized Health Care Education/Training Program; Visit Provider Student in an Organized Health Care Education/Training Program
DX: E04.1 Nontoxic single thyroid nodule (principal); E78.2 Mixed hyperlipidemia; I10 Essential (primary) hypertension; M81.0 Age-related osteoporosis without current pathological fracture; R04.0 Epistaxis; Z11.59 Encounter for screening for other viral diseases
CPT/HCPCS: 36415; 80053; 83520; 85025; 85610; 85730; 86256; 86803

== ENCOUNTER → 2022-06-23 09:24 | Outpatient (CLI) | payer OTHER, BC, SELFPAY ==
[2022-06-23 11:31] LABS: COVID19 -Nasal RAPID Negative (Negative)
== END ==
PROVIDERS: PCP Student in an Organized Health Care Education/Training Program; Visit Provider Surgery
DX: Z01.812 Encounter for preprocedural laboratory examination (principal); Z20.822 Contact with and (suspected) exposure to COVID-19
CPT/HCPCS: 87635; C9803

== ENCOUNTER 2022-06-24 07:08 | Day surgery (SDC) | payer OTHER, BC, SELFPAY ==
[2022-06-24 07:42] VITALS: BP 122/76; PULSE 62; RESP 16; TEMP 36.7; O2SAT 100; BMI 27.1
[2022-06-24] MEDS: LACTATED RINGERS 1,000 ML 42 ML IV (07:48)
--- NOTE | 2022-06-24 08:17 | PM.HP.1 ---
History of Present Illness History of Present Illness Date Patient Seen: 06/24/22 Time Patient Seen: 08:17 Chief complaint: Colonoscopy Narrative: Deborah is a 61-year-old woman who is here for colonoscopy. She has never had 1 before. She has no known family history of colon cancer. She has no problems with her bowel function. Patient History Medical History (Updated 06/24/22 @ 08:17 by Pedro Schmidt MD) Cervical spine disease Hypertension (~2013) TIA (transient ischemic attack) (~09/2011) Surgical History History of cervical spinal surgery (~06/2014) History of esophagogastroduodenoscopy (EGD) (06/04/14) Family & Social History Family History Father Hyperlipidemia Hypertension Grandfather Coronary artery disease Chronic heart failure Grandmother Hyperlipidemia Mother Hyperlipidemia Hypertension Grandfather Hyperlipidemia Social History: household members spouse Tobacco & Substance use: Smoking Status Former smoker alcohol intake current alcohol intake frequency 0-2 drinks per day Substance Use Type does not use Meds Home Medications and Allergies Home Medications Medication Instructions Recorded Confirmed Type cholecalciferol (vitamin D3) 50 2,000 unit PO DAILY 08/18/18 06/24/22 History mcg (2,000 unit) capsule atorvastatin 40 mg tablet 40 mg PO BEDTIME #90 tabs 04/19/22 06/24/22 Rx duloxetine 60 mg capsule,delayed 60 mg PO DAILY #90 caps 04/19/22 06/24/22 Rx release gabapentin 800 mg tablet 800 mg PO BID #180 tabs 04/19/22 06/24/22 Rx losartan 50 mg tablet 50 mg PO DAILY #90 tabs 04/19/22 06/24/22 Rx omeprazole 20 mg capsule,delayed 20 mg PO BID #60 caps 04/23/22 06/24/22 Rx release Allergies Allergy/AdvReac Type Severity Reaction Status Date / Time lisinopril Allergy Severe SWOLLEN Verified 04/19/22 15:53 TOUNGUE simvastatin Allergy Severe Anaphylaxis, Verified 04/19/22 15:53 upper back pain prednisone [PREDNISONE] AdvReac Unknown NAUSEA AND Verified 04/19/22 15:53 VOMITING Exam Vital Signs (past 8 hours): - 06/24/22 07:42 Temperature 98.1 F Pulse Rate 62 Respiratory Rate 16 Blood Pressure 122/76 Pulse Oximetry 100 Oxygen Delivery Method Room Air Oxygen Delivery Method Room Air Const General: healthy appearing Assessment & Plan Assessment and plan (1) Colon cancer screening: Status: Acute Plan We reviewed the risks and benefits of colonoscopy and she would like to proceed. Time Spent With Patient Critical Care time: I spent a total of [] minutes of critical care time on this patient's care today; this time is exclusive of procedural time.
[2022-06-24 08:50] VITALS: BP 111/74; PULSE 50; RESP 14; TEMP 36.1; O2SAT 100
--- NOTE | 2022-06-24 08:55 | P.OP.COLON_ITS ---
Operative Date/Time/Diagnoses Date of procedure: 06/24/22 Time of procedure: 08:55 Pre-op diagnosis: Colon cancer screening Post-op diagnosis: same Procedure & Clinicians Study performed: Colonoscopy Same procedure as scheduled: Yes Surgeon: Pedro Schmidt Procedure Notes Procedure in detail: Surgeon: Pedro Schmidt MD Anesthesia: Lexi Klein CRNA Procedure: The patient was brought to the endoscopy suite, placed in left lateral decubitus position. The patient was connected to monitoring devices. A time-out was performed. Sedation was administered. Once the patient was adequately sedated, a digital rectal exam was performed and was normal. The scope was then inserted and advanced to the cecum where the appendiceal orifice was identified and photographed. The scope was then slowly withdrawn over greater than 6 minutes. The mucosa was thoroughly inspected. No polyps or oth er lesions were seen. The scope was retroflexed in the rectum. No abnormalities were seen. The scope was straightened and removed. The patient was awakened and brought to recovery. Scope withdrawal time: 10 minutes Sedation time: 18 minutes EBL: 0 Findings: Normal colon Post-procedure Recommendations: Colonoscopy in 10 years Disposition: PACU
[2022-06-24 08:59] VITALS: PULSE 74; RESP 16; O2SAT 100
--- NOTE | 2022-06-24 09:06 | SUR.PHASEI ---
DC home with ride. all belongings with patient/family
[2022-06-24 09:11] VITALS: BP 90/57; PULSE 42; RESP 15; TEMP 36.2; O2SAT 100
[2022-06-24 09:16] VITALS: BP 92/62; PULSE 49; RESP 15; O2SAT 100
== END 2022-06-24 09:25 | disposition home or self-care (01) ==
PROVIDERS: PCP Student in an Organized Health Care Education/Training Program; Referring Provider Surgery; Visit Provider Surgery
PROC: 0DJD8ZZ Inspection of Lower Intestinal Tract, Via Natural or Artificial Opening Endoscopic (ICD-10-PCS; CPT 45378; principal; 2022-06-24 08:15)
DX: Z12.11 Encounter for screening for malignant neoplasm of colon (principal)
CPT/HCPCS: 45378; J2704

== ENCOUNTER → 2023-08-25 07:56 | Outpatient (CLI) | payer OTHER, BC, SELFPAY ==
--- NOTE | 2023-08-25 07:58 | DI.MG.S_ITS ---
BILATERAL DIGITAL SCREENING MAMMOGRAM 3D/2D WITH CAD: 08/25/2023 CLINICAL: Routine screening. Comparison is made to exams dated: 04/16/2022 mammogram - [facility], 01/22/2010 mammogram, and 04/12/2005 mammogram - [facility]. There are scattered areas of fibroglandular density in both breasts (category b / 25%-50% glandular tissue). Current study was also evaluated with a Computer Aided Detection (CAD) system. No significant masses, calcifications, or other findings are seen in either breast. There has been no significant interval change. IMPRESSION: NEGATIVE There is no mammographic evidence of malignancy. A 1 year screening mammogram is recommended. Based on the Tyrer Cuzick model (a risk assessment model) the patient's lifetime risk is 5.0% and her 10 year risk is 2.1%. According to the ACR, ACS, and NCCN guidelines, an annual breast MRI exam along with mammogram is recommended if the patient's lifetime risk is 20% or greater. This exam was interpreted at Station ID: [id number]. NOTE: For mammograms, a report in lay terms will be sent to the patient. Approximately 15% of breast malignancies will not be visualized mammographically. In the management of a palpable breast mass, a negative mammogram must not discourage biopsy of a clinically suspicious lesion. Electronically Signed By: Kaity Valencia M.D., PH.D eb/paulie:08/25/2023 11:53:24 letter sent: Normal Exam ACR BI-RADS Category 1: Negative [id number]
== END ==
PROVIDERS: PCP Student in an Organized Health Care Education/Training Program; Referring Provider Student in an Organized Health Care Education/Training Program; Visit Provider Student in an Organized Health Care Education/Training Program
DX: Z12.31 Encounter for screening mammogram for malignant neoplasm of breast (principal); R92.323 Mammographic fibroglandular density, bilateral breasts
CPT/HCPCS: 77063; 77067

== ENCOUNTER 2023-09-23 06:48 | Emergency (ER) | payer OTHER, BC, SELFPAY ==
[2023-09-23 06:58] VITALS: BP 132/73; PULSE 76; RESP 18; TEMP 36.8; O2SAT 98; BMI 26.5
--- NOTE | 2023-09-23 07:03 | DI.RAD.S_ITS ---
PROCEDURE: XR ANKLE RT MIN 3V INDICATIONS: injury TECHNIQUE: 3 views of the ankle were acquired. COMPARISON: [facility], CR, XR ANKLE RT MIN 3V, 12/06/2017, 13:17. FINDINGS: Bones: Postsurgical changes of prior open reduction and internal fixation of distal right tibia/fibula with lateral plate and screw fixation. There is lucency surrounding the 2 syndesmotic screws, suggesting loosening. No hardware failure noted. There is cortical irregularity involving the distal, medial aspect of the fibula near the tibiotalar joint level. Chronic appearing cortical irregularity of the base of the 5th metatarsal. Soft tissues: Small joint effusion. Achilles tendon shadow is within normal limits. Moderate lateral malleolar soft tissue swelling. IMPRESSION: Moderate lateral malleolar soft tissue swelling and small anterior tibiotalar joint effusion with possible nondisplaced fracture of the distal right fibula in the level of the tibiotalar joint. Postsurgical changes of ORIF of the distal right tibia/fibula with findings suggestive of hardware loosening of the 2 syndesmotic screws. No evidence for hardware failure. Dictated by: Harman Farah M.D. on 09/23/2023 at 8:11 Approved by: Harman Farah M.D. on 09/23/2023 at 8:15
--- NOTE | 2023-09-23 07:07 | DI.RAD.S_ITS ---
PROCEDURE: XR FOOT RT MIN 3V INDICATIONS: injury pain TECHNIQUE: 3 views of the foot were acquired. COMPARISON: [facility], CR, XR ANKLE RT MIN 3V, 09/23/2023, 7:26. [facility], CR, XR FOOT RT MIN 3V, 12/06/2017, 13:22. FINDINGS: Bones: Postsurgical changes of open reduction and internal fixation of the distal right tibia/fibula with lateral plate and screw fixation. Lucency surrounds the 2 syndesmotic screws suggestive of loosening. No hardware failure seen. Cortical irregularity of the distal fibula seen on ankle radiographic series not well visualized on this study. Otherwise, no other fracture identified. Soft tissues: Small anterior tibiotalar joint effusion. Achilles tendon appears normal. Moderate lateral malleolar soft tissue swelling. IMPRESSION: Moderate lateral malleolar soft tissue swelling. No acute fracture identified in the right foot. Cortical irregularity of the distal fibula seen on ankle series not well visualized on this exam. Please see separate report for further details. Postsurgical changes of open reduction and internal fixation of the distal right tibia/fibula with findings suggestive of hardware loosening involving the 2 syndesmotic screws. Dictated by: Harman Farah M.D. on 09/23/2023 at 8:15 Approved by: Harman Farah M.D. on 09/23/2023 at 8:17
--- NOTE | 2023-09-23 07:15 | ED_ITS ---
HPI - Extremity Injury (Lower) General Chief Complaint: Extremity Injury, Lower Stated Complaint: possible broken rt ankle from a fall Time Seen by Provider: 09/23/23 06:49 Source: patient Mode of arrival: Ambulatory History of Present Illness HPI Narrative: Patient is a healthy 62-year-old female who presents today with right ankle pain. She is previously broken that ankle required surgery and slipped on a wet piece of wood yesterday while hiking. She is able to weightbear but very minimally. She is elevated and ice throughout the night. Foot is also tender. No pain in her knee. She reports that this pain is much worse than it was when she originally broke it. Related Data Home Medications Medication Instructions Recorded Confirmed cholecalciferol (vitamin D3) 50 2,000 unit PO DAILY 08/18/18 03/08/23 mcg (2,000 unit) capsule Previous Rx's Medication Instructions Recorded atorvastatin 40 mg tablet 40 mg PO BEDTIME #90 tabs 08/18/23 duloxetine 30 mg capsule,delayed 30 mg PO DAILY #90 caps 08/18/23 release gabapentin 800 mg tablet 800 mg PO BID #180 tabs 08/18/23 losartan 50 mg tablet 50 mg PO DAILY #90 tabs 08/18/23 omeprazole 20 mg capsule,delayed 20 mg PO BID #60 caps 08/18/23 release hydrocodone 5 mg-acetaminophen 325 1 tab PO Q6H PRN pain #20 tabs 09/23/23 mg tablet Allergies Allergy/AdvReac Type Severity Reaction Status Date / Time lisinopril Allergy Severe SWOLLEN Verified 04/19/22 15:53 TOUNGUE simvastatin Allergy Severe Anaphylaxis, Verified 04/19/22 15:53 upper back pain prednisone [PREDNISONE] AdvReac Unknown NAUSEA AND Verified 04/19/22 15:53 VOMITING Patient History Medical History (Updated 09/23/23 @ 08:39 by Pamela Mayer DO) Cervical spine disease Hypertension (~2013) TIA (transient ischemic attack) (~09/2011) Surgical History History of cervical spinal surgery (~06/2014) History of esophagogastroduodenoscopy (EGD) (06/04/14) Family History Father Hyperlipidemia Hypertension Grandfather Coronary artery disease Chronic heart failure Grandmother Hyperlipidemia Mother Hyperlipidemia Hypertension Grandfather Hyperlipidemia Social History household members: spouse Smoking Status: Former smoker alcohol intake: current substance use type: does not use Smoking Status: Former smoker alcohol intake frequency: 0-2 drinks per day Substance Use Type: does not use Exam Initial Vital Signs Initial Vital Signs: Vital Signs Temperature 98.3 F 09/23/23 06:58 Pulse Rate 76 09/23/23 06:58 Respiratory Rate 18 09/23/23 06:58 Blood Pressure 132/73 09/23/23 06:58 Pulse Oximetry 98 09/23/23 06:58 Oxygen Delivery Method Room Air 09/23/23 06:58 GENERAL: Well-appearing, well-nourished and in no acute distress. CARDIOVASCULAR: peripheral pulses in tact, cap refill <2 sec RESPIRATORY: No respiratory distress, speaks in full sentences without difficulty EXTREMITIES: Normal range of motion, no clubbing or edema. Neurovascularly intact Right lower extremity mild lateral swelling tender to touch distal pedal pulse intact mid foot pain as well no lateral pain knee stable NEUROLOGICAL: Cranial nerves II through XII grossly intact. Normal gait and speech. SKIN: Warm, dry, no petechiae, no rashes or lesions. Course Orders Ordered: ED Orders 09/23/23 07:03 XR ankle RT min 3V Stat 09/23/23 07:07 XR foot RT min 3V Stat Discontinued Medications Hydrocodone Bitart/Acetaminophen (Hydrocodone/Acet 5/325 Tablet) 1 tab PO NOW ONE Stop: 09/23/23 08:36 Last Admin: 09/23/23 08:43 Dose: 1 tab Documented By: CTS Vital Signs Vital signs: Vital Signs - 8 hr 09/23/23 06:58 09/23/23 08:53 Temperature 98.3 F Pulse Rate 76 77 Respiratory Rate 18 16 Blood Pressure 132/73 128/78 Pulse Oximetry 98 97 Oxygen Delivery Method Room Air Room Air MDM - Extremity Injury (Lower) Imaging Data Extremity x-ray #1: Radiologist's Impression: PROCEDURE: XR ANKLE RT MIN 3V INDICATIONS: injury TECHNIQUE: 3 views of the ankle were acquired. COMPARISON: [facility], , XR ANKLE RT MIN 3V, 12/06/2017, 13:17. FINDINGS: Bones: Postsurgical changes of prior open reduction and internal fixation of distal right tibia/fibula with lateral plate and screw fixation. There is lucency surrounding the 2 syndesmotic screws, suggesting loosening. No hardware failure noted. There is cortical irregularity involving the distal, medial aspect of the fibula near the tibiotalar joint level. Chronic appearing cortical irregularity of the base of the 5th metatarsal. Soft tissues: Small joint effusion. Achilles tendon shadow is within normal limits. Moderate lateral malleolar soft tissue swelling. IMPRESSION: Moderate lateral malleolar soft tissue swelling and small anterior tibiotalar joint effusion with possible nondisplaced fracture of the distal right fibula in the level of the tibiotalar joint. Postsurgical changes of ORIF of the distal right tibia/fibula with findings suggestive of hardware loosening of the 2 syndesmotic screws. No evidence for hardware failure. Dictated by: Harman Farah M.D. on 09/23/2023 at 8:11 Approved by: Harman Farah M.D. on 09/23/2023 at 8:15 Extremity x-ray #2: Radiologist's Impression: PROCEDURE: XR FOOT RT MIN 3V INDICATIONS: injury pain TECHNIQUE: 3 views of the foot were acquired. COMPARISON: [facility], , XR ANKLE RT MIN 3V, 09/23/2023, 7:26. [facility], , XR FOOT RT MIN 3V, 12/06/2017, 13:22. FINDINGS: Bones: Postsurgical changes of open reduction and internal fixation of the distal right tibia/fibula with lateral plate and screw fixation. Lucency surrounds the 2 syndesmotic screws suggestive of loosening. No hardware failure seen. Cortical irregularity of the distal fibula seen on ankle radiographic series not well visualized on this study. Otherwise, no other fracture identified. Soft tissues: Small anterior tibiotalar joint effusion. Achilles tendon appears normal. Moderate lateral malleolar soft tissue swelling. IMPRESSION: Moderate lateral malleolar soft tissue swelling. No acute fracture identified in the right foot. Cortical irregularity of the distal fibula seen on ankle series not well visualized on this exam. Please see separate report for further details. Postsurgical changes of open reduction and internal fixation of the distal right tibia/fibula with findings suggestive of hardware loosening involving the 2 syndesmotic screws. Dictated by: Harman Farah M.D. on 09/23/2023 at 8:15 MDM Narrative Medical decision making narrative: Patient is 62-year-old female presents today with right ankle pain after twisting on a wet long last evening. She able to weightbear slightly but having intense pain worse than when she previously broke it. X-ray reveals questionable periprosthetic fracture. She is neurovascularly intact. 08:30 Dr. Horan updated on patient's symptoms has reviewed x-rays himself recommends walking boot minimal weight-bearing and follow up with ortho. Can po ssibly be treated nonsurgically I have updated patient on orthopedic recommendations, reports that Dr. Staples previously did surgery on her ankle. Discharge Plan Departure Patient Disposition: Home Clinical Impression: Periprosthetic fracture around internal prosthetic right ankle joint, initial encounter Instructions: Ankle Fracture Activity Restrictions/Additional Instructions: *You have been diagnosed with right ankle fracture *What to do: At this time wear walking boot at all times may partially weightbear. Will need to follow-up with orthopedics *Continue to take medications as directed Newman 1 tablet every 6 hours if needed for severe pain--> [facility] *Follow up with your primary care provider in 2-3 days or call [phone] Staples *Return to ER if you should have increasing pain numbness tingling weakness [or] any new, worsening or concerning symptoms CONTROLLED SUBSTANCE DISCHARGE (Narcotoic/benzodiazepine/Flexeril/Phenergan) 1. You have been prescribed narcotic medications, it does have acetaminophen/Tylenol/paracetamol in it, DO NOT TAKE MORE THAN 4,00mg in 24 hours of Tylenol. TRAMADOL DOES NOT CONTAIN TYLENOL 2. Please understand that we cannot provide further refills of narcotics, benzodiazepines or controlled substances through the ED and her pain management will need to be through your provider. 3. While on these medications you cannot drive or operate heavy machinery. 4. You cannot sign legal documents or perform any duties such as this. 5. As long as you're taking opiate pain medications he should also be taking a stool softener such as Colace, Dulcolax, MiraLAX or prune juice, to help avoid constipation. Prescriptions: New hydrocodone-acetaminophen 5-325 mg tablet 1 tab PO Q6H PRN (Reason: pain) Qty: 20 0RF No Action atorvastatin 40 mg tablet 40 mg PO BEDTIME Qty: 90 0RF duloxetine 30 mg capsule,delayed release(DR/EC) 30 mg PO DAILY Qty: 90 0RF gabapentin 800 mg tablet 800 mg PO BID Qty: 180 0RF losartan 50 mg tablet 50 mg PO DAILY Qty: 90 0RF omeprazole 20 mg capsule,delayed release(DR/EC) 20 mg PO BID Qty: 60 11RF cholecalciferol (vitamin D3) 2,000 unit capsule 2,000 unit PO DAILY Referrals: Dulce Maria Staples MD [Physician] - Tata Knox MD [Primary Care Provider] - Stand Alone Forms: Patient Portal/API
[2023-09-23] MEDS: HYDROCODONE/ACET 5/325 TABLET 1 TAB PO (08:43)
--- NOTE | 2023-09-23 08:52 | PC.NURSE ---
pt declined crutches at this time. states she has a knee scooter at home that she feels is safer for her to use and more comfortable.
[2023-09-23 08:53] VITALS: BP 128/78; PULSE 77; RESP 16; O2SAT 97
== END 2023-09-23 08:54 | disposition home or self-care (01) ==
PROVIDERS: Emergency Provider Emergency Medicine; PCP Student in an Organized Health Care Education/Training Program
DX: M97.21XA Periprosthetic fracture around internal prosthetic right ankle joint, initial encounter (principal); W01.0XXA Fall on same level from slipping, tripping and stumbling without subsequent striking against object, initial encounter
CPT/HCPCS: 73610; 73630; 99283

== ENCOUNTER → 2024-07-05 08:36 | Outpatient (CLI) | payer OTHER, BC, SELFPAY ==
--- NOTE | 2024-07-05 08:37 | DI.RAD.S_ITS ---
PROCEDURE: XR LUMBAR SPINE 2-3V INDICATIONS: back pain TECHNIQUE: 3 views of the lumbar spine were acquired. COMPARISON: None. FINDINGS: Bones: 5 [id number] vertebrae are present. There is normal bony alignment. No vertebral body compression fractures. No suspicious bony lesions. Facet osteoarthritis becomes progressively more prominent from L3 through S1, most pronounced at L5-S1 where significant associated spinal and foraminal stenosis may be present. Soft tissues: Overlying bowel gas pattern is normal. No suspicious soft tissue calcifications. IMPRESSION: No acute bony abnormality. Moderate degenerative facet osteoarthritis present bilaterally, left slightly greater than right, most pronounced at L5-S1. Dictated by: James Sumner M.D. on 07/05/2024 at 9:24 Approved by: James Sumner M.D. on 07/05/2024 at 9:25
[2024-07-05 09:25] LABS: Add Manual Diff / Slide Review NO; Basophils Absolute Auto 0 /uL (0-100); Basophils Percent Auto 0.5 % (0-2); Eosinophils Absolute Auto 200 /uL (0-450); Eosinophils Percent Auto 2.4 % (2-4); Hematocrit 38.5 % (36-46); Lymphocytes Absolute Auto 2000 /uL (1100-4500); Lymphocytes Percent Auto 29.1 % (25-40); Mean Corpuscular HGB Conc 33.8 % (30-36); Mean Corpuscular Volume 94.5 fL (80-100); Monocytes Absolute Auto 500 /uL (0-900); Monocytes Percent Auto 7.4 % (3-14); Neutrophils Absolute Auto 4200 /uL (1500-7000); Neutrophils Percent Auto 60.6 % (50-75); Platelet Count 340 X10^3/uL (150-400); Red Blood Cell Count 4.07 X10^6/uL (4.0-5.2); Red Cell Distribution Width 12.5 % (11.6-14.8); White Blood Cell Count 6.9 X10^3/uL (4.5-11.0)
[2024-07-05 09:59] LABS: Alanine Aminotransferase 17 IU/L (<35); Albumin 4.8 g/dL (3.5-5.0); Albumin Globulin Ratio 1.7 (1.0-2.8); Alkaline Phosphatase 58 U/L (38-126); Aspartate Aminotransferase 25 IU/L (14-36); BUN Creatinine Ratio 22.8 (6-22); Bilirubin Total 0.7 mg/dL (0.2-1.3); Blood Urea Nitrogen 21 mg/dL (7-17); Calcium 9.8 mg/dL (8.4-10.2); Carbon Dioxide 29 mmol/L (22-32); Chloride 102 mmol/L (98-107); Estimated Glomerular Filt Rate > 60 mL/min (>60); Globulin 2.8 g/dL (1.7-4.1); Glucose 99 mg/dL (80-110); HDL Cholesterol 98 mg/dL (40-60); HEMOLYSIS < 15 (0-50); Potassium 4.9 mmol/L (3.4-5.1); Sodium 139 mmol/L (137-145); Total Protein 7.6 g/dL (6.3-8.2); Triglycerides 82 mg/dL (35-150)
[2024-07-05 10:10] LABS: Cholesterol 356 mg/dL (140-199); LDL Cholesterol Calculated 242 mg/dL (<100)
== END ==
PROVIDERS: PCP Student in an Organized Health Care Education/Training Program; Referring Provider Student in an Organized Health Care Education/Training Program; Visit Provider Student in an Organized Health Care Education/Training Program
DX: I10 Essential (primary) hypertension; M54.59 Other low back pain; M47.817 Spondylosis without myelopathy or radiculopathy, lumbosacral region
CPT/HCPCS: 36415; 72100; 80053; 80061; 85025

== ENCOUNTER → 2024-10-22 11:15 | Outpatient (CLI) | payer OTHER, BC, SELFPAY ==
--- NOTE | 2024-10-22 11:16 | DI.RAD.S_ITS ---
PROCEDURE: XR DEXA AXIAL SKELETON INDICATIONS: Osteoporosis COMPARISON: [facility], , DEXA AXIAL SKELETON, 08/27/2016, 10:59. FINDINGS: Lumbar Spine: Bone mineral density 1.005 (previously 1.119) g/cm2, T score -0.4 (previously -0.6). Left Femoral Neck: Bone mineral density 0.567 (previously 0.671) g/cm2, T score -2.5 (previously -2.6). Left Hip: Bone mineral density 0.768 (previously 0.776) g/cm2, T score -1.4 (previously -1.8). Fracture Risk Calculation (when applicable): 10-year fracture risk of a major osteoporotic fracture 12 percent and of a hip fracture 2.2 percent. (T score greater or equal to -1.0 to: NORMAL) (T score from -1.1 to -2.4: OSTEOPENIA) (T score less than or equal to -2.5: OSTEOPOROSIS) IMPRESSION: Osteoporosis--- recommend repeat DEXA in 2 years or less for reassessment of response to treatment. Follow-up guidelines as follows: Osteoporosis: Consider a repeat DEXA and Vertebral Fracture Assessment (VFA) exam in 2 years or sooner if medically necessary, to reassess this patient's status. Osteopenia: Consider a repeat DEXA in 2-3 years to reassess this patient's status, or if there is a new clinical indication. Normal: Consider a repeat DEXA in 5 years or sooner, or if there is a new clinical indication. All treatment decisions require clinical judgment and consideration of individual patient factors, including patient preferences, comorbidities, previous drug use, risk factors not captured in the FRAX model (e.g., frailty, falls, vitamin D deficiency, increased bone turnover, interval significant decline in bone density ) and possible under- or over-estimation of fracture risk by FRAX. In addition, the NOF Guide recommends that FDA-approved medical therapies be considered in postmenopausal women and men age >= 50 years with a: * Hip or vertebral (clinical or morphometric) fracture * T-score of <=-2.5 at the spine or hip * Ten-year fracture probability by FRAX of >= 3% for hip fracture or >=20% for major osteoporotic fracture. Dictated by: Joby Dwyer M.D. on 10/22/2024 at 19:06 Approved by: Joby Dwyer M.D. on 10/22/2024 at 19:10
== END ==
LOC: RAD 11:15
PROVIDERS: PCP Student in an Organized Health Care Education/Training Program; Referring Provider Student in an Organized Health Care Education/Training Program; Visit Provider Student in an Organized Health Care Education/Training Program
DX: M81.0 Age-related osteoporosis without current pathological fracture (principal)
CPT/HCPCS: 77080

== ENCOUNTER → 2024-11-12 07:57 | Outpatient (CLI) | payer OTHER, BC, SELFPAY ==
[2024-11-12 09:04] LABS: Cholesterol 222 mg/dL (140-199); Triglycerides 49 mg/dL (35-150)
[2024-11-12 09:13] LABS: HDL Cholesterol 135 mg/dL (40-60); LDL Cholesterol Calculated 77 mg/dL (<100)
[2024-11-12 09:40] LABS: Microalbumin Urine Random 1.2 mg/dL (0-1.6)
== END ==
PROVIDERS: PCP Student in an Organized Health Care Education/Training Program; Referring Provider Student in an Organized Health Care Education/Training Program; Visit Provider Student in an Organized Health Care Education/Training Program
DX: E78.2 Mixed hyperlipidemia (principal); I10 Essential (primary) hypertension
CPT/HCPCS: 36415; 80061; 82043; 82570